=== PATIENT | female | born 1940 | race Caucasian/White ===

== ENCOUNTER 2017-08-29 18:00 | Observation (INO) | payer MEDICARE, OTHER ==
[~2017-08-29] VITALS: Ht 157.5 cm; Wt 65.7 kg
[~2017-08-29 18:00] MED LIST: CIPR500T4 PO; CYAN1000P IM; METR-1 PO
[2017-08-29 18:06] VITALS: BP 163/80; PULSE 78; RESP 16; TEMP 98; O2SAT 100
[2017-08-29] MEDS ORDERED: PANT20TA2 PO (18:43)
[2017-08-29] MEDS ORDERED: MECL12.574 PO (18:43)
[2017-08-29] MEDS ORDERED: FAMO1TAB37 PO (18:43)
[2017-08-29] MEDS ORDERED: ALPR.25 PO (18:43)
--- NOTE | 2017-08-29 18:53 | PD ---
HPI Chief Complaint: Chest Pain Time Seen by Provider: 18:42 Travel History International Travel<30 days: No Contact w/Intl Traveler<30days: No Traveled to known affect area: No History of Present Illness HPI 77-year-old female here for evaluation of chest pain. Patient reports that she has had intermittent episodes of chest discomfort over the last 3 days. She states the pain was initially over her left chest and under her left breast, described as squeezing, intermittent. She now has these episodes in her substernal chest. The discomfort radiates to her left shoulder and left upper back when it occurs. There are no modifying factors. Currently she states she has some mild discomfort. She denies any history of cardiac disease. Her father of an VT at the age of 62. She is a non-smoker. No dyspnea. No paresthesias or motor deficits. No fevers or recent illness. No hemoptysis. No history of DVT or PE. Patient reports having history of GERD, and she thought maybe her symptoms were related to GERD. She tried taking her usual Protonix and antacids, however is unsure if these medications have been helping or not. PFSH Past Medical History Anemia: Yes (B12 DEFICIENT) Anxiety: Yes Diverticulitis: Yes GERD: Yes Medical other: Yes (VERTIGO) Tetanus Vaccination: > 5 Years Influenza Vaccination: Yes ?: Not Menopausal: Yes Past Surgical History Cholecystectomy: Yes (LAP) Other Surgery: Yes (CYST BREAST) Social History Alcohol Use: Yes (WINE OR BEER MOST NIGHTS) Tobacco Use: No Substance Use: No Allergies-Medications (Allergen,Severity, Reaction): Coded Allergies: diphenhydramine (Unverified Allergy, Severe, 08/29/17) STATES MINI SEIZURES penicillin G (Unverified Allergy, Severe, 08/29/17) pseudoephedrine (Unverified Allergy, Severe, 08/29/17) Uncoded Allergies: iv dy (Allergy, Severe, throat swelling , 08/29/17) Reported Meds & Prescriptions Reported Meds & Active Scripts Active Reported Pepcid (Famotidine) 20 Mg Tab 20 Mg PO BID Pantoprazole (Pantoprazole Sodium) 20 Mg Tab 20 Mg PO DAILY Meclizine (Meclizine HCl) 12.5 Mg Tab 12.5 Mg PO DIRECTED PRN Xanax (Alprazolam) 0.25 Mg Tab 0.25 Mg PO DIRECTED PRN Review of Systems Except as stated in HPI: all other systems reviewed are Neg Physical Exam Narrative GENERAL: Well-developed, well-nourished, comfortable, no apparent distress. SKIN: Focused skin assessment warm/dry. HEAD: Atraumatic. Normocephalic. EYES: Pupils equal and round. No scleral icterus. No injection or drainage. ENT: Mucous membranes pink and moist. NECK: Trachea midline. No JVD. CARDIOVASCULAR: Regular rate and rhythm. No murmur appreciated. RESPIRATORY: No accessory muscle use. Clear to auscultation. Breath sounds equal bilaterally. GASTROINTESTINAL: Abdomen soft, non-tender, nondistended. MUSCULOSKELETAL: No obvious deformities. No clubbing. No cyanosis. No edema. NEUROLOGICAL: Awake and alert. No obvious cranial nerve deficits. Motor grossly within normal limits. Normal speech. PSYCHIATRIC: Appropriate mood and affect; insight and judgment normal. Data Data Last Documented VS Vital Signs Date Time Temp Pulse Resp B/P (MAP) Pulse Ox O2 Delivery O2 Flow Rate FiO2 08/29/17 19:36 99 Room Air 08/29/17 19:36 85 16 166/77 (106) 08/29/17 18:06 98.0 Orders Orders Ckmb (Isoenzyme) Profile (08/29/17 18:50) Complete Blood Count With Diff (08/29/17 18:50) Comprehensive Metabolic Panel (08/29/17 18:50) Magnesium (Mg) (08/29/17 18:50) Prothrombin Time / Inr (Pt) (08/29/17 18:50) Act Partial Throm Time (Ptt) (08/29/17 18:50) Troponin I (08/29/17 18:50) Lipase (08/29/17 18:50) Ecg Monitoring (08/29/17 18:50) Iv Access Insert/Monitor (08/29/17 18:50) Oximetry (08/29/17 18:50) Aspirin Chew (Aspirin Chew) (08/29/17 19:00) Sodium Chloride 0.9% Flush (Ns Flush) (08/29/17 19:00) Nitroglycerin Sl (Nitrostat Sl) (08/29/17 19:00) Chest, Pa & Lat (08/29/17 18:50) CKMB (08/29/17 19:15) CKMB% (08/29/17 19:15) Ct Thorax/ Chest Wo Iv Contras (08/29/17 ) Alprazolam (Xanax) (08/29/17 20:15) Electrocardiogram (08/29/17 18:10) Labs Laboratory Tests Test 08/29/17 19:15 White Blood Count 7.7 TH/MM3 Red Blood Count 4.14 MIL/MM3 Hemoglobin 11.6 GM/DL Hematocrit 34.7 % Mean Corpuscular Volume 83.7 FL Mean Corpuscular Hemoglobin 28.0 PG Mean Corpuscular Hemoglobin Concent 33.4 % Red Cell Distribution Width 12.8 % Platelet Count 210 TH/MM3 Mean Platelet Volume 9.1 FL Neutrophils (%) (Auto) 55.2 % Lymphocytes (%) (Auto) 31.1 % Monocytes (%) (Auto) 7.9 % Eosinophils (%) (Auto) 4.6 % Basophils (%) (Auto) 1.2 % Neutrophils # (Auto) 4.2 TH/MM3 Lymphocytes # (Auto) 2.4 TH/MM3 Monocytes # (Auto) 0.6 TH/MM3 Eosinophils # (Auto) 0.4 TH/MM3 Basophils # (Auto) 0.1 TH/MM3 CBC Comment DIFF FINAL Differential Comment Prothrombin Time 10.0 SEC Prothromb Time International Ratio 1.0 RATIO Activated Partial Thromboplast Time 23.8 SEC Blood Urea Nitrogen 17 MG/DL Creatinine 0.85 MG/DL Random Glucose 95 MG/DL Total Protein 7.3 GM/DL Albumin 3.3 GM/DL Calcium Level 9.0 MG/DL Magnesium Level 2.0 MG/DL Alkaline Phosphatase 77 U/L Aspartate Amino Transf (AST/SGOT) 18 U/L Alanine Aminotransferase (ALT/SGPT) 22 U/L Total Bilirubin 0.2 MG/DL Sodium Level 139 MEQ/L Potassium Level 4.3 MEQ/L Chloride Level 105 MEQ/L Carbon Dioxide Level 27.8 MEQ/L Anion Gap 6 MEQ/L Estimat Glomerular Filtration Rate 65 ML/MIN Total Creatine Kinase 128 U/L Creatine Kinase MB 1.7 NG/ML Troponin I LESS THAN 0.02 NG/ML Lipase 169 U/L MDM Medical Decision Making Medical Screen Exam Complete: Yes Emergency Medical Condition: Yes Interpretation(s) EKG: Sinus, rate 77, normal axis, normal intervals, no acute ischemic abnormality. Differential Diagnosis ACS, pneumothorax, pericarditis, PE, pneumonia, GERD Narrative Course Initial vital signs show heart rate 70, blood pressure 163/80, pulse ox 100% on room air, oral temperature 98F. CBC is unremarkable. CMP is unremarkable. Cardiac enzymes are negative. Lipase is 169. Chest x-ray: Pleural-based mass lower anterior right chest. Further evaluation with chest CT recommended. Patient and the patient's significant other were made aware of all findings at this point and plan for further imaging with CT of the thorax. CT Thorax: CONCLUSION: 1. Pleural lipoma or epicardial fat-pad in the lower right anterior chest measuring up to 4.6 cm in diameter. No suspicious findings. No further workup recommended. Mild Coronary Calcifications. The patient was made aware of all findings. She is resting comfortably. She will be admitted to the chest pain center for further cardiac evaluation. Case discussed with hospitalist Dr. Martinez who will admit the patient to the chest pain center. Diagnosis Primary Impression: Chest pain Qualified Codes: R07.9 - Chest pain, unspecified Additional Impression: Pleural lipoma Admitting Information Admitting Physician Requests: Tushar Mcgovern MD Aug 29, 2017 18:53
[2017-08-29] MEDS ORDERED: SODIUM CHLORIDE 0.9% FLUSH 10 ML FLUSH IVF PRN (19:00)
[2017-08-29] MEDS ORDERED: NITROGLYCERIN 0.4 MG SL 25 TABS/BTL SL ONE (19:00)
[2017-08-29] MEDS ORDERED: ASPIRIN 81 MG CHEW TAB PO ONE (19:00)
[2017-08-29 19:36] VITALS: BP 166/77; PULSE 85; RESP 16; O2SAT 98; O2SAT 99
[2017-08-29 19:39] LABS: CHLORIDE 105 MEQ/L (98-107); SODIUM (NA) 139 MEQ/L (136-145)
--- NOTE | 2017-08-29 19:39 | RADRPT ---
EXAM DATE/TIME: 08/29/2017 18:57 [facility] COMPARISON: No previous studies available for comparison. INDICATIONS : Chest pain. MEDICAL HISTORY : None. SURGICAL HISTORY : None. ENCOUNTER: Initial ACUITY: 3 days PAIN SCORE: 8/10 LOCATION: Bilateral chest FINDINGS: There is a circumscribed mass at the anterior cardiophrenic angle measuring up to 5.9 x 3.6 cm. The m ass appears to be pleural-based. This would be better evaluated Chest CT. Left lung clear. No effusio n or pneumothorax. Heart size within normal limits. CONCLUSION: 1. Pleural-based mass lower anterior right chest. Further evaluation with chest CT recommended. Juventino Sabillon MD on August 29, 2017 at 19:36 Board Certified Radiologist. This report was verified electronically.
[2017-08-29 19:43] LABS: ALBUMIN 3.3 GM/DL (3.4-5.0); BICARBONATE 27.8 MEQ/L (21.0-32.0); BLOOD UREA NITROGEN 17 MG/DL (7-18); GLUCOSE,RANDOM 95 MG/DL (74-106)
[2017-08-29 19:46] LABS: ALT (GPT) 22 U/L (10-53); AST (GOT) 18 U/L (15-37); AUTOMATED NEUTROPHIL # 4.2 TH/MM3 (1.8-7.7); BASOPHIL # 0.1 TH/MM3 (0-0.2); BASOPHIL % 1.2 % (0.0-2.0); CREATININE 0.85 MG/DL (0.50-1.00); EOSINOPHIL # 0.4 TH/MM3 (0-0.4); EOSINOPHIL % 4.6 % (0.0-4.0); GLOMERULAR FILTRATION RATE 65 ML/MIN (>89); HEMATOCRIT 34.7 % (35.0-46.0); HEMOGLOBIN 11.6 GM/DL (11.6-15.3); LYMPH % 31.1 % (9.0-44.0); LYMPHOCYTE # 2.4 TH/MM3 (1.0-4.8); MEAN CELL VOLUME 83.7 FL (80.0-100.0); MEAN CORPUSCULAR HGB CONC 33.4 % (32.0-36.0); MEAN PLATELET VOLUME 9.1 FL (7.0-11.0); MONO % 7.9 % (0.0-8.0); MONOCYTE # 0.6 TH/MM3 (0-0.9); NEUT % 55.2 % (16.0-70.0); PLATELET COUNT 210 TH/MM3 (150-450); RED BLOOD COUNT 4.14 MIL/MM3 (4.00-5.30); RED CELL DISTRIBUTION WIDTH 12.8 % (11.6-17.2); WHITE BLOOD COUNT 7.7 TH/MM3 (4.0-11.0)
[2017-08-29 19:47] LABS: TOTAL BILIRUBIN ADULT 0.2 MG/DL (0.2-1.0); TOTAL PROTEIN 7.3 GM/DL (6.4-8.2)
[2017-08-29 19:49] LABS: ALKALINE PHOSPHATASE 77 U/L (45-117)
[2017-08-29 19:51] LABS: TROPONIN I LESS THAN 0.02 NG/ML (0.02-0.05)
[2017-08-29] MEDS ORDERED: ALPRAZolam 0.25 MG TAB PO ONE (20:15)
--- NOTE | 2017-08-29 21:24 | RADRPT ---
EXAM DATE/TIME: 08/29/2017 20:37 [facility] COMPARISON: No previous studies available for comparison. INDICATIONS : Chest pain x 3 days. Abnormal chest x-ray. Evaluate for mass. RADIATION DOSE: 6.47 CTDIvol (mGy) MEDICAL HISTORY : Gastroesophageal reflux disease. Diverticulitis. SURGICAL HISTORY : Cholecystectomy. ENCOUNTER: Initial ACUITY: 3 days PAIN SCALE: 2/10 LOCATION: Bilateral chest TECHNIQUE: Volumetric scanning of the chest was performed. Using automated exposure control and adjustment of t he mA and/or kV according to patient size, radiation dose was kept as low as reasonably achievable to obtain optimal diagnostic quality images. DICOM format image data is available electronically for r eview and comparison. Follow-up recommendations for detected pulmonary nodules are based at a minimum on nodule size and pa tient risk factors according to Fleischner Society Guidelines. FINDINGS: Pleural-based mass in the anterior right chest correlates a lipoma or prominent epicardial fat-pad. N o suspicious finding is minimal atelectasis in lungs. No pleural or pericardial effusion. No adenopat hy. Mild coronary calcifications. No acute findings in the upper abdomen. CONCLUSION: 1. Pleural lipoma or epicardial fat-pad in the lower right anterior chest measuring up to 4.6 cm in d iameter. No suspicious findings. No further workup recommended. Juventino Sabillon MD on August 29, 2017 at 21:19 Board Certified Radiologist. This report was verified electronically.
--- NOTE | 2017-08-29 21:52 | EKG ---
Date Performed: 08/29/2017 Time Performed: 18:10:17 PTAGE: 77 years EKG: Sinus rhythm NORMAL ECG NO PREVIOUS TRACING DOCTOR: Darci Marx Interpretating Date/Time 08/29/2017 21:50:46
[2017-08-29 22:54] VITALS: BP 136/88; PULSE 75; RESP 16; TEMP 98.2; O2SAT 98
[2017-08-30] VITALS: BP 148/70; PULSE 72; RESP 20; TEMP 96.2; O2SAT 97
[2017-08-30 04:00] VITALS: BP 124/73; PULSE 72; RESP 20; TEMP 97.2; O2SAT 95
[2017-08-30] MEDS ORDERED: NITROGLYCERIN 0.4 MG SL 25 TABS/BTL SL PRN (07:30)
[2017-08-30] MEDS ORDERED: ACETAMINOPHEN 500 MG CPLT PO PRN (07:30)
[2017-08-30] MEDS ORDERED: ONDANSETRON HCL 4 MG/2 ML VIAL IV PUSH PRN (07:30)
[2017-08-30] MEDS ORDERED: SODIUM CHLORIDE 0.9% FLUSH 10 ML FLUSH IV FLUSH PRN (07:30)
[2017-08-30] MEDS ORDERED: MORPHINE SULFATE 4 MG/ML INJ IV PUSH PRN (07:30)
[2017-08-30 08:00] VITALS: BP 128/73; PULSE 70; RESP 18; TEMP 97.7; O2SAT 97
[2017-08-30 08:01] VITALS: PULSE 72
[2017-08-30] MEDS ORDERED: SODIUM CHLORIDE 0.9% FLUSH 10 ML FLUSH IV FLUSH SCH (09:00)
[2017-08-30] MEDS ORDERED: ALPRAZolam 0.25 MG TAB PO PRN (09:00)
--- NOTE | 2017-08-30 09:19 | HHI.HP ---
[facility] Kenton Perales MD Admission Diagnosis Chest Pain, Pleural Lipoma Diagnoses: Travel History International Travel<30 Days: No Contact w/Intl Traveler <30 Da: No Traveled to Known Affected Are: No History of Present Illness 77 year old female with a history of anxiety, GERD, and hiatal hernia is admitted to the chest pain center for evaluation of intermittent chest pain. The patient states about four days ago she had a knot-like sensation under her left breast that radiated to her mid-chest, back, and left shoulder. The pain came on shortly after eating fried chicken and was relieved with Mylanta. She states over the next few days the same pain would come and go but it felt different than her typical acid reflux pain. She describes the pain as sometimes sharp and sometimes dull. She has had panic attacks in the past and she reports this felt different as well. She reports she also feels anxious when the pain comes on and feels like she has a lump in her throat. The pain was not always related to food and didn't seem to have a pattern; it would occur with rest and she denies any exertional symptoms. She denies associated diaphoresis, shortness of breath, or palpitations. She has had two normal stress tests in the past; the last was over a year ago and was an exercise stress test. She is physically active and regularly goes to the gym. She feels she is able to do another ETT. Review of Systems Except as stated in HPI: all other systems reviewed are Neg Past Family Social History Past Medical History Anxiety Panic attacks GERD Vertigo Hiatal hernia Past Surgical History Cholecystectomy Reported Medications Pepcid (Famotidine) 20 Mg Tab 20 Mg PO BID Pantoprazole (Pantoprazole Sodium) 20 Mg Tab 20 Mg PO DAILY Meclizine (Meclizine HCl) 12.5 Mg Tab 12.5 Mg PO DIRECTED PRN Xanax (Alprazolam) 0.25 Mg Tab 0.25 Mg PO DIRECTED PRN Allergies: Coded Allergies: diphenhydramine (Unverified Allergy, Severe, 08/29/17) STATES MINI SEIZURES penicillin G (Unverified Allergy, Severe, 08/29/17) pseudoephedrine (Unverified Allergy, Severe, 08/29/17) Uncoded Allergies: iv dy (Allergy, Severe, throat swelling , 08/29/17) Active Ordered Medications Acetaminophen (Tylenol) 500 mg Q4H PRN PO; Start 08/30/17 at 07:30 Alprazolam (Xanax) 0.25 mg ONCE ONCE PO Last administered on 08/29/17at 20:29; Admin Dose 0.25 MG; Start 08/29/17 at 20:15; Stop 08/29/17 at 20:16; Status DC Aspirin (Aspirin Chew) 324 mg ONCE ONCE PO Last administered on 08/29/17at 19:20 ; Admin Dose 324 MG; Start 08/29/17 at 19:00; Stop 08/29/17 at 19:01; Status DC Morphine Sulfate (Morphine Inj) 2 mg Q4H PRN IV PUSH; Start 08/30/17 at 07:30 Nitroglycerin (Nitrostat Sl) 0.4 mg ONCE ONCE SL; Start 08/29/17 at 19:00; Stop 08/29/17 at 19:01; Status DC Nitroglycerin (Nitrostat Sl) 0.4 mg Q5M PRN SL; Start 08/30/17 at 07:30 Ondansetron HCl (Zofran Inj) 4 mg Q6H PRN IV PUSH; Start 08/30/17 at 07:30 Sodium Chloride (NS Flush) 2 ml BID IV FLUSH Last administered on 08/30/17at 07: 55; Admin Dose 2 ML; Start 08/30/17 at 09:00 Sodium Chloride (NS Flush) 2 ml UNSCH PRN IV FLUSH; Start 08/30/17 at 07:30 Sodium Chloride (NS Flush) 2 ml UNSCH PRN IVF; Start 08/29/17 at 19:00 Family History Mother: breast cancer, in 90s Father: at 62 from massive heart attack Social History Lives with in [place] and [place] part of the year EtOH: occasional glass of wine with dinner Tobacco: remote history >30 years ago Illicit drugs: denies Physical Exam Vital Signs Vital Signs Date Time Temp Pulse Resp B/P (MAP) Pulse Ox O2 Delivery O2 Flow Rate FiO2 3/11/18 04:00 97.2 72 20 124/73 (90) 95 08/30/17 00:00 96.2 72 20 148/70 (96) 97 08/29/17 22:55 08/29/17 22:54 98.2 75 16 136/88 (104) 98 Room Air 08/29/17 19:36 99 Room Air 08/29/17 19:36 85 16 166/77 (106) 98 Room Air 08/29/17 18:39 Room Air 08/29/17 18:06 98.0 78 16 163/80 (107) 100 Physical Exam GENERAL: Pleasant, well-nourished, well-developed female sitting up comfortably in bed in no apparent distress. SKIN: No rashes, ecchymoses or lesions. Cool and dry. HEENT: Atraumatic. Normocephalic. No temporal or scalp tenderness. Pupils equal round and reactive. Extraocular motions intact. No scleral icterus. No injection or drainage. Nose without bleeding, purulent drainage or septal hematoma. Throat without erythema, tonsillar hypertrophy or exudate. Uvula midline. Airway patent. NECK: Trachea midline. No JVD or lymphadenopathy. Supple, nontender, no meningeal signs. CARDIOVASCULAR: Regular rate and rhythm without murmurs, gallops, or rubs. RESPIRATORY: Clear to auscultation. Breath sounds equal bilaterally. No wheezes , rales, or rhonchi. GASTROINTESTINAL: Abdomen soft, non-tender, nondistended. No hepato-splenomegaly , or palpable masses. No guarding. MUSCULOSKELETAL: Chest pain not reproducible. Extremities without clubbing, cyanosis, or edema. No joint tenderness, effusion, or edema noted. No calf tenderness. Negative Homans sign bilaterally. NEUROLOGICAL: Awake and alert. Motor and sensory grossly within normal limits. Normal speech. Laboratory Laboratory Tests Test 08/29/17 19:15 White Blood Count 7.7 Red Blood Count 4.14 Hemoglobin 11.6 Hematocrit 34.7 Mean Corpuscular Volume 83.7 Mean Corpuscular Hemoglobin 28.0 Mean Corpuscular Hemoglobin Concent 33.4 Red Cell Distribution Width 12.8 Platelet Count 210 Mean Platelet Volume 9.1 Neutrophils (%) (Auto) 55.2 Lymphocytes (%) (Auto) 31.1 Monocytes (%) (Auto) 7.9 Eosinophils (%) (Auto) 4.6 Basophils (%) (Auto) 1.2 Neutrophils # (Auto) 4.2 Lymphocytes # (Auto) 2.4 Monocytes # (Auto) 0.6 Eosinophils # (Auto) 0.4 Basophils # (Auto) 0.1 CBC Comment DIFF FINAL Differential Comment Prothrombin Time 10.0 Prothromb Time International Ratio 1.0 Activated Partial Thromboplast Time 23.8 Blood Urea Nitrogen 17 Creatinine 0.85 Random Glucose 95 Total Protein 7.3 Albumin 3.3 Calcium Level 9.0 Magnesium Level 2.0 Alkaline Phosphatase 77 Aspartate Amino Transf (AST/SGOT) 18 Alanine Aminotransferase (ALT/SGPT) 22 Total Bilirubin 0.2 Sodium Level 139 Potassium Level 4.3 Chloride Level 105 Carbon Dioxide Level 27.8 Anion Gap 6 Estimat Glomerular Filtration Rate 65 Total Creatine Kinase 128 Creatine Kinase MB 1.7 Troponin I LESS THAN 0.02 Lipase 169 Result Diagram: 08/29/17191408/29/171914 Imaging Chest X-Ray 08/29/17 1850 Signed Impressions: Service Date/Time: Tuesday, August 29, 2017 18:57 - CONCLUSION: 1. Pleural-based mass lower anterior right chest. Further evaluation with chest CT recommended. Juventino Sabillon MD Chest CT 08/29/17 0000 Signed Impressions: Service Date/Time: Tuesday, August 29, 2017 20:37 - CONCLUSION: 1. Pleural lipoma or epicardial fat-pad in the lower right anterior chest measuring up to 4.6 cm in diameter. No suspicious findings. No further workup recommended. Juventino Sabillon MD Caprini VTE Risk Assessment Caprini VTE Risk Assessment: Mod/High Risk (score >= 2) Caprini Risk Assessment Model Point Value = 1 Point Value = 2 Point Value = 3 Point Value = 5 Age 41-60 Minor surgery BMI > 25 kg/m2 Swollen legs Varicose veins or History of unexplained or recurrent spontaneous Oral contraceptives or hormone replacement Sepsis (< 1 month) Serious lung disease, including pneumonia (< 1 month) Abnormal pulmonary function Acute myocardial infarction Congestive heart failure (< 1 month) History of inflammatory bowel disease Medical patient at bed rest Age 61-74 Arthroscopic surgery Major open surgery (> 45 min) Laparoscopic surgery (> 45 min) Malignancy Confined to bed (> 72 hours) Immobilizing plaster cast Central venous access Age >= 75 History of VTE Family history of VTE Factor V Leiden Prothrombin [id number] Lupus anticoagulant Anticardiolipin antibodies Elevated serum homocysteine Heparin-induced thrombocytopenia Other congenital or acquired thrombophilia Stroke (< 1 month) Elective arthroplasty Hip, pelvis, or leg fracture Acute spinal cord injury (< 1 month) Prophylaxis Regimen Total Risk Factor Score Risk Level Prophylaxis Regimen 0-1 Low Early ambulation 2 Moderate Order ONE of the following: *Sequential Compression Device (SCD) *Heparin 5000 units SQ BID 3-4 Higher Order ONE of the following medications: *Heparin 5000 units SQ TID *Enoxaparin/Lovenox 40 mg SQ daily (WT < 150 kg, CrCl > 30 mL/min) *Enoxaparin/Lovenox 30 mg SQ daily (WT < 150 kg, CrCl > 10-29 mL/min) *Enoxaparin/Lovenox 30 mg SQ BID (WT < 150 kg, CrCl > 30 mL/min) AND/OR *Sequential Compression Device (SCD) 5 or more Highest Order ONE of the following medications: *Heparin 5000 units SQ TID (Preferred with Epidurals) *Enoxaparin/Lovenox 40 mg SQ daily (WT < 150 kg, CrCl > 30 mL/min) *Enoxaparin/Lovenox 30 mg SQ daily (WT < 150 kg, CrCl > 10-29 mL/min) *Enoxaparin/Lovenox 30 mg SQ BID (WT < 150 kg, CrCl > 30 mL/min) AND *Sequential Compression Device (SCD) Assessment and Plan Problem List: (1) Chest pain ICD Code: R07.9 - Chest pain, unspecified Status: Acute (2) GERD (gastroesophageal reflux disease) ICD Code: K21.9 - Gastro-esophageal reflux disease without esophagitis (3) Anxiety ICD Code: F41.9 - Anxiety disorder, unspecified Assessment and Plan 77 YOWF with history of anxiety, hiatal hernia, and GERD admitted for evaluation of chest pain. 1. Chest pain - Pt with atypical chest pain; differentials include ACS, angina, reflux, anxiety, esophageal spasm, hiatal hernia - Cardiac risk factors: age, female - EKG in ER showed NSR with no ST changes - Troponin negative, vital signs stable - Serial cardiac enzymes and EKGs - CXR with pleural-based mass lower right chest and CT further reveals a lipoma or epicardial fat-pad w/ no need for further work-up - Admit to CP center - Exercise stress test - Morphine and nitro PRN CP - Supplemental O2 PRN 2. GERD - Resume home H2 darren and PPI 3. Anxiety - Resume home Alprazolam PRN 4. DVT prophylaxis - Ambulatory Code Status FULL Discussed Condition With Patient Problem Qualifiers (1) Chest pain: Qualified Codes: R07.9 - Chest pain, unspecified Valerie Coffman MD Aug 30, 2017 09:19
[2017-08-30] MEDS ORDERED: PANTOPRAZOLE SOD 20 MG DELAYED RELEASE TAB PO SCH (10:00)
[2017-08-30] MEDS ORDERED: FAMOTIDINE 20 MG TAB PO SCH (10:00)
[2017-08-30 10:42] LABS: TROPONIN I LESS THAN 0.02 NG/ML (0.02-0.05)
[2017-08-30 12:00] VITALS: BP 118/77; PULSE 74; RESP 18; TEMP 97.6; O2SAT 98
[2017-08-30 13:56] LABS: TROPONIN I LESS THAN 0.02 NG/ML (0.02-0.05)
--- NOTE | 2017-08-30 15:45 | HHI.PR ---
Subjective Remarks Patient underwent treadmill test. HAIDER Saenz discussed findings with cardiology which were interpreted as normal. Patient cleared for discharge. Objective Vital Signs Date Time Temp Pulse Resp B/P (MAP) Pulse Ox O2 Delivery O2 Flow Rate FiO2 08/30/17 12:00 97.6 74 18 118/77 (91) 98 08/30/17 08:01 72 08/30/17 08:00 97.7 70 18 128/73 (91) 97 08/30/17 04:00 97.2 72 20 124/73 (90) 95 08/30/17 00:00 96.2 72 20 148/70 (96) 97 08/29/17 22:55 08/29/17 22:54 98.2 75 16 136/88 (104) 98 Room Air 08/29/17 19:36 99 Room Air 08/29/17 19:36 85 16 166/77 (106) 98 Room Air 08/29/17 18:39 Room Air 08/29/17 18:06 98.0 78 16 163/80 (107) 100 I/O 08/29/17 08/29/17 08/29/17 08/30/17 08/30/17 08/30/17 07:00 15:00 23:00 07:00 15:00 23:00 Intake Total 120 ml Balance 120 ml Intake Oral 120 ml # Voids 2 Result Diagram: 08/29/17191408/29/171914 A/P Assessment and Plan 77 YOWF with history of anxiety, hiatal hernia, and GERD admitted for evaluation of chest pain. 1. Chest pain - Pt with atypical chest pain; differentials include ACS, angina, reflux, anxiety, esophageal spasm, hiatal hernia - Cardiac risk factors: age, female - EKG x 2 showed NS[address] with no ST changes - Serial enzymes negative - CXR with pleural-based mass lower right chest and CT further reveals a lipoma or epicardial fat-pad w/ no need for further work-up - Treadmill testing normal - Symptoms likely secondary to combination of reflux and anxiety which patient has home meds for 2. GERD - Resume home H2 darren and PPI 3. Anxiety - Resume home Alprazolam PRN Discharge Planning D/C home and f/u with PCP Valerie Coffman MD Aug 30, 2017 15:45
--- NOTE | 2017-08-30 15:48 | HHI.DCPOC ---
Discharge Care Plan Diagnosis: (1) Chest pain Goals to Promote Your Health * To prevent worsening of your condition and complications * To maintain your health at the optimal level Directions to Meet Your Goals Take your medications as prescribed Follow your dietary instruction Follow activity as directed Keep your appointments as scheduled Take your immunizations and boosters as scheduled If your symptoms worsen call your PCP, if no PCP go to Urgent Care Center or Emergency Room Smoking is Dangerous to Your Health. Avoid second hand smoke Call the 24-hour hour crisis hotline for domestic abuse at Ani Santana Aug 30, 2017 15:48
--- NOTE | 2017-08-31 10:16 | TR ---
Date Performed: 08/30/2017 Time Performed: 15:00:12 DOCTOR: Yaya Jacobson DRUG LIST: CLINICAL HISTORY: REASON FOR TEST: REASON FOR ENDING: OBSERVATION: CONCLUSION: Jose protocol completed and test stopped secondary to reaching target heart rate. N o reproducible chest discomfort. Good BP response. Recovery quick and unremarkable. No diagnostic ST changes or upsloping j point depression not diagnostic.Maximum KU=[id number] Target HR Vchqgbnw=341.0% Maxi mum ZG=135/72 Total Exercise Time=6:01 COMMENTS:
--- NOTE | 2017-08-31 10:16 | EKG ---
Date Performed: 08/30/2017 Time Performed: 13:21:36 PTAGE: 77 years EKG: Sinus rhythm NORMAL ECG No change PREVIOUS TRACING : 08/29/2017 18.10 DOCTOR: Yaya Jacobson Interpretating Date/Time 08/31/2017 10:15:16
== END 2017-08-30 18:19 | disposition home or self-care (01) ==
LOC: PHED 18:00 → PHEDA 21:48 → PH3A 22:40
PROVIDERS: ADMIT Hospitalist; ATTEND Hospitalist
DX: R07.89 Other chest pain (principal); K21.9 Gastro-esophageal reflux disease without esophagitis; D17.79 Benign lipomatous neoplasm of other sites; K44.9 Diaphragmatic hernia without obstruction or gangrene; F41.9 Anxiety disorder, unspecified; F41.0 Panic disorder [episodic paroxysmal anxiety]; Z82.49 Family history of ischemic heart disease and other diseases of the circulatory system
CPT/HCPCS: 71046; 71250; 80053; 82550; 82552; 83690; 83735; 84484; 85025; 85610; 85730; 93005; 93017; 99285; G0378